=== PATIENT | male | born 1960 | race Caucasian/White ===

== ENCOUNTER 2018-11-16 11:43 | Day surgery (SDC) | payer OTHER ==
[~2018-11-16] VITALS: Ht 160 cm; Wt 103.4 kg
[~2018-11-16 11:43] MED LIST: ATOR10 PO; FISH OIL 1,0001 EAC1 PO; G-FENESIN400 MG PO; MULTI VITAMIN1 EACH PO; ZESTORETIC 20-121 EA PO; ZYRTEC10 M1 PO
[2018-11-16] MEDS ORDERED: HYDCHL12.5 PO (11:59)
--- NOTE | 2018-11-16 12:31 | NUR ---
11/16/18 1231 Olga Lidia Sauceda SIMETHECONE FLUSH USED DURING COLONOSCOPY.
== END 2018-11-16 13:25 | disposition home or self-care (01) ==
LOC: ORSCSDS 11:43
PROVIDERS: Student in an Organized Health Care Education/Training Program
PROC: 0DBH8ZX Excision of Cecum, Via Natural or Artificial Opening Endoscopic, Diagnostic (ICD-10-PCS; principal; 2018-11-16 13:00)
DX: Z12.11 Encounter for screening for malignant neoplasm of colon (principal); D12.0 Benign neoplasm of cecum; I10 Essential (primary) hypertension; G47.33 Obstructive sleep apnea (adult) (pediatric); K57.30 Diverticulosis of large intestine without perforation or abscess without bleeding; E66.01 Morbid (severe) obesity due to excess calories; Z68.41 Body mass index [BMI] 40.0-44.9, adult; Z79.899 Other long term (current) drug therapy
CPT/HCPCS: 88305; J2704; J7120

== ENCOUNTER → 2021-02-07 | Outpatient (CLI) | payer BC ==
[~2021-02-07] MED LIST changes: +BASAGLAR K100 UNIT/6 SC; +CEFD300 PO; +HUMALOG KW100 UNIT/1 SC; +HYDCHL12.5 PO; +HYDROCHLOROTH12.5 MG PO; +INSULIN LI100 UNIT/6; +LACT PO; +LISI20 PO; +METF500 PO; +Prednisone10 MG PO
[2021-02-07 13:22] LABS: BASOPHILS ABSOLUTE AUTO 0.04 K/mm3 (0.00-0.23); BASOPHILS PERCENT AUTO 0 % (0-2); EOSINOPHILS ABSOLUTE AUTO 0.11 K/mm3 (0.00-0.68); EOSINOPHILS PERCENT AUTO 1 % (0-6); Hematocrit 36.5 % (37.0-53.0); Hemoglobin 12.1 g/dL (13.5-17.5); IMMATURE GRAN ABSOLUTE AUTO 0.09 K/mm3 (0.00-0.10); IMMATURE GRAN PERCENT AUTO 1 % (0-1); LYMPHOCYTES ABSOLUTE AUTO 0.64 K/mm3 (0.84-5.20); LYMPHOCYTES PERCENT AUTO 6 % (21-46); MONOCYTES ABSOLUTE AUTO 0.81 K/mm3 (0.16-1.47); MONOCYTES PERCENT AUTO 7 % (4-13); Mean Corpuscular HGB Conc 33.2 g/dL (31.5-36.5); Mean Corpuscular Volume 94 fL (80-100); Mean Platelet Volume 11.6 fL (9.1-12.4); NEUTROPHILS ABSOLUTE AUTO 9.68 K/mm3 (1.96-9.15); NEUTROPHILS PERCENT AUTO 85 % (41-73); Platelet Count 218 K/mm3 (150-400); RDW Coefficient Variation 12.3 % (11.7-14.2); RDW Standard Deviation 42.5 fL (35.1-46.3); White Blood Cell Count 11.37 K/mm3 (4.00-11.30)
[2021-02-07 14:29] LABS: Albumin, Blood 2.8 g/dL (3.4-5.0); Albumin/Globulin Ratio 0.5 (0.8-1.8); Bilirubin, Total 0.3 mg/dL (0.1-1.0); Bun/Creatinine Ratio 17.4 (12.0-20.0); Calcium, Blood 9.8 mg/dL (8.5-10.1); Creatinine, Blood 2.01 mg/dL (0.60-1.20); Potassium, Blood 4.8 mmol/L (3.5-5.5); Total Protein, Blood 8.8 g/dL (6.4-8.2)
[2021-02-07 15:39] LABS: Source, Urine Clean Catch
[2021-02-07 16:04] LABS: Amorphous Light (0-Heavy); Bacteria Rare /hpf; Red Blood Cells, Urine 0-2 /hpf (0-2); Squamous Epithelial Cells Rare /hpf (Few); White Blood Cells, Urine 0-2 /hpf (0-5)
[2021-02-09 13:08] LABS: ANA DIRECT Negative (Negative); ANTI-DNA (DS) AB QN <1 IU/mL (0-9); RNP ANTIBODIES <0.2 AI (0.0-0.9); SJOGREN'S ANTI-SS-A <0.2 AI (0.0-0.9); SJOGREN'S ANTI-SS-B <0.2 AI (0.0-0.9); SMITH ANTIBODIES <0.2 AI (0.0-0.9)
== END | disposition home or self-care (01) ==
LOC: LAB 12:59 → LAB SHORT 12:59
PROVIDERS: Physician Assistant
DX: M35.3 Polymyalgia rheumatica (principal); R31.9 Hematuria, unspecified; D72.829 Elevated white blood cell count, unspecified
CPT/HCPCS: 80053; 81015; 85025; 85060; 85651; 86140; 86225; 86235; 86430; 87086

== ENCOUNTER 2021-02-11 16:06 | Inpatient (IN) | payer BC ==
[~2021-02-11] VITALS: Ht 162.6 cm; Wt 99.8 kg
[~2021-02-11 16:06] MED LIST changes: -BASAGLAR K100 UNIT/6 SC; -CEFD300 PO; -HUMALOG KW100 UNIT/1 SC; -HYDROCHLOROTH12.5 MG PO; -INSULIN LI100 UNIT/6; -LACT PO; -LISI20 PO; -METF500 PO; -Prednisone10 MG PO
[2021-02-11 17:01] LABS: BASOPHILS ABSOLUTE AUTO 0.03 K/mm3 (0.00-0.23); BASOPHILS PERCENT AUTO 0 % (0-2); EOSINOPHILS ABSOLUTE AUTO 0.22 K/mm3 (0.00-0.68); EOSINOPHILS PERCENT AUTO 2 % (0-6); Hematocrit 35.2 % (37.0-53.0); Hemoglobin 11.2 g/dL (13.5-17.5); IMMATURE GRAN ABSOLUTE AUTO 0.13 K/mm3 (0.00-0.10); IMMATURE GRAN PERCENT AUTO 1 % (0-1); LYMPHOCYTES ABSOLUTE AUTO 0.77 K/mm3 (0.84-5.20); LYMPHOCYTES PERCENT AUTO 7 % (21-46); MONOCYTES ABSOLUTE AUTO 0.61 K/mm3 (0.16-1.47); MONOCYTES PERCENT AUTO 5 % (4-13); Mean Corpuscular HGB 30.4 pg (26.0-34.0); Mean Corpuscular HGB Conc 31.8 g/dL (31.5-36.5); Mean Corpuscular Volume 96 fL (80-100); Mean Platelet Volume 11.1 fL (9.1-12.4); NEUTROPHILS ABSOLUTE AUTO 9.78 K/mm3 (1.96-9.15); NEUTROPHILS PERCENT AUTO 85 % (41-73); Platelet Count 303 K/mm3 (150-400); RDW Coefficient Variation 12.2 % (11.7-14.2); RDW Standard Deviation 43.4 fL (35.1-46.3); Red Blood Cell Count 3.68 M/mm3 (4.30-5.90); White Blood Cell Count 11.54 K/mm3 (4.00-11.30)
[2021-02-11 17:27] LABS: Alanine Aminotransfer (ALT/SGP 54 U/L (12-78); Albumin, Blood 2.2 g/dL (3.4-5.0); Albumin/Globulin Ratio 0.4 (0.8-1.8); Alk Phos 69 U/L (50-136); Anion Gap 7 mmol/L (6-16); Aspartate Aminotrans (AST/SGOT 39 U/L (12-37); Bilirubin, Total 0.4 mg/dL (0.1-1.0); Blood Urea Nitrogen 43 mg/dL (8-24); CO2, Blood 26 mmol/L (21-32); Calcium, Blood 9.5 mg/dL (8.5-10.1); Chloride, Blood 101 mmol/L (98-108); Creatinine, Blood 1.79 mg/dL (0.60-1.20); Globulin, Blood 6.1 g/dL (2.2-4.0); Glomerular Filtration Rate 41 (60-); Glucose, Blood 213 mg/dL (70-99); Potassium, Blood 4.3 mmol/L (3.5-5.5); Sodium, Blood 134 mmol/L (136-145); Total Protein, Blood 8.3 g/dL (6.4-8.2)
[2021-02-11 17:35] LABS: Source, Urine Clean Catch
[2021-02-11 17:39] LABS: Appearance, Urine Clear (Clear); Bilirubin, Urine Neg (Neg); Blood, Urine 1+ (Neg); Color, Urine Yellow (P-Yellow); Glucose Qualitative, Urine Neg (Neg); Ketones, Urine 1+ (Neg); Leukocyte Esterase, Urine 1+ (Neg); Nitrite, Urine Neg (Neg); Protein, Urine 2+ (Neg); Urobilinogen, Urine NORM (Normal)
[2021-02-11 17:51] LABS: C-REACTIVE PROTEIN, EXT RANGE >19.000 mg/dL (0.000-0.300)
[2021-02-11 18:07] LABS: Amorphous Light (0-Heavy); Bacteria Few /hpf; Hyaline Casts 0-2 /lpf (0-2); Red Blood Cells, Urine 0-2 /hpf (0-2); Squamous Epithelial Cells Rare /hpf (Few); White Blood Cells, Urine 0-2 /hpf (0-5)
[2021-02-11 19:09] LABS: Adenovirus Not Detected (NOT DETECT); Bordetella pertussis Not Detected (NOT DETECT); Chlamydophila pneumoniae Not Detected (NOT DETECT); Coronavirus 229E Not Detected (NOT DETECT); Coronavirus HKU1 Not Detected (NOT DETECT); Coronavirus NL63 Not Detected (NOT DETECT); Coronavirus OC43 Not Detected (NOT DETECT); Human Metapneumovirus Not Detected (NOT DETECT); Human Rhinovirus/Enterovirus Not Detected (NOT DETECT); Influenza A/2009-H1 Not Detected (NOT DETECT); Influenza A/H1 Not Detected (NOT DETECT); Influenza A/H3 Not Detected (NOT DETECT); Influenza B Not Detected (NOT DETECT); Mycoplasma pneumoniae Not Detected (NOT DETECT); Parainfluenza Virus 1 Not Detected (NOT DETECT); Parainfluenza Virus 2 Not Detected (NOT DETECT); Parainfluenza Virus 3 Not Detected (NOT DETECT); Parainfluenza Virus 4 Not Detected (NOT DETECT); Respiratory Syncytial Virus Not Detected (NOT DETECT); SARS-Cov-2 (COVID-19), BioFire Not Detected (NOT DETECT)
[2021-02-11 21:07] LABS: Glucose, CSF 119 mg/dL (40-70)
[2021-02-11 21:21] LABS: Appearance, CSF Clear (Clear); Color, CSF No Color (No Color); RBC Count, CSF 5 /mm3 (0-0); WBC Count, CSF 1 /mm3 (0-5)
[2021-02-11 21:24] LABS: RBC Count, CSF 0 /mm3 (0-0); WBC Count, CSF 0 /mm3 (0-5)
[2021-02-11 21:25] LABS: Appearance, CSF Clear (Clear); Color, CSF No Color (No Color)
[2021-02-11] MEDS ORDERED: LISI20 PO (21:46)
[2021-02-11] MEDS ORDERED: HYDROCHLOROTH12.5 MG PO (21:46)
[2021-02-11 23:15] LABS: Cryptococcus Neoformans/Gattii Not Detected (NOT DETECT); Enterovirus Not Detected (NOT DETECT); Escherichia Coli K1 Not Detected (NOT DETECT); Haemophilus Influenza Not Detected (NOT DETECT); Herpes Simplex Virus 1 Not Detected (NOT DETECT); Herpes Simplex Virus 2 Not Detected (NOT DETECT); Human Herpesvirus 6 Not Detected (NOT DETECT); Human Parechovirus Not Detected (NOT DETECT); Listeria Monocytogenes Not Detected (NOT DETECT); Neisseria Meningitidis Not Detected (NOT DETECT); Streptococcus Agalactiae Not Detected (NOT DETECT); Streptococcus Pneumoniae Not Detected (NOT DETECT); Varicella Zoster Virus Not Detected (NOT DETECT)
--- NOTE | 2021-02-12 00:10 | NUR ---
ADMISSION: PATIENT IS RECIEVED VIA STRETCHER FROM ER. ABLE TO AMBULATE WITH ASSIST OF 1 TO THE BATHROOM TO VOID. PATIEN T AND ARE ORIENTED TO ROOM AND CALL GENTILE.
[2021-02-12 05:21] LABS: Hematocrit 32.8 % (37.0-53.0); Hemoglobin 10.6 g/dL (13.5-17.5); Mean Corpuscular HGB 30.5 pg (26.0-34.0); Mean Corpuscular HGB Conc 32.3 g/dL (31.5-36.5); Mean Corpuscular Volume 94 fL (80-100); Platelet Count 255 K/mm3 (150-400); RDW Coefficient Variation 12.5 % (11.7-14.2); RDW Standard Deviation 43.8 fL (35.1-46.3); Red Blood Cell Count 3.48 M/mm3 (4.30-5.90)
[2021-02-12 05:41] LABS: Albumin, Blood 1.9 g/dL (3.4-5.0); Albumin/Globulin Ratio 0.4 (0.8-1.8); Bilirubin, Total 0.2 mg/dL (0.1-1.0); Bun/Creatinine Ratio 24.5 (12.0-20.0); Calcium, Blood 8.5 mg/dL (8.5-10.1); Creatinine, Blood 1.59 mg/dL (0.60-1.20); Potassium, Blood 4.5 mmol/L (3.5-5.5); Total Protein, Blood 6.9 g/dL (6.4-8.2)
[2021-02-12 05:59] LABS: BAND PERCENT MAN 9 % (0-8); BASOPHILS PERCENT MAN 0 % (0-2); EOSINOPHILS ABSOLUTE MAN 0.08 K/mm3 (0.00-0.68); EOSINOPHILS PERCENT MAN 1 % (0-6); LYMPHOCYTES ABSOLUTE MAN 0.53 K/mm3 (0.84-5.20); LYMPHOCYTES PERCENT MAN 6 % (21-46); MONOCYTES ABSOLUTE MAN 0.62 K/mm3 (0.16-1.47); MONOCYTES PERCENT MAN 7 % (4-13); NEUTROPHILS ABSOLUTE MAN 7.65 K/mm3 (1.96-9.15); SEG NEUTROPHILS PERCENT MAN 77 % (41-73); TOTAL CELLS COUNTED 100
--- NOTE | 2021-02-12 08:04 | NUR ---
SHIFT SUMMARY: PATIENT IS A&OX4, CONTINUES TO RUN A LOW GRADE FEVER. REPORTING GENERALIZED PAIN 6-7/10. GAIT IS UNSTEADY DUE TO PAIN IN LOWER LEGS. NS X 1 IS INFUSING PER MD ARMSTRONG. NO ACUTE CHANGES.
--- NOTE | 2021-02-12 10:03 | NUR ---
echocardiogram completed
--- NOTE | 2021-02-12 12:56 | NUR ---
Advance Directive (AD) education conducted. Patient expresses interest so I give patient an AD booklet and go over the sections within the booklet and explain about the filing process. Patient demonstrates a clear understanding and states that he will read over the materials and contact spiritual care if he has any further questions. Spiritual care will remain available .
[2021-02-12 13:49] LABS: U Amphetamine Screen Not Detected; U Barbituate Screen Not Detected; U Benzodiazapine Screen Not Detected; U Buprenorphine Screen Not Detected; U Cannabinoids Screen Not Detected; U Cocaine Screen Not Detected; U Methadone Screen Not Detected; U Methamphetamine Screen Not Detected; U Opiates Screen Not Detected; U Oxycodone Screen Not Detected; U Phencyclidine Screen Not Detected; U Propoxyphene Screen Not Detected
--- NOTE | 2021-02-12 16:45 | NUR ---
TYLENOL GIVEN. ICE PACKS TO ARMPITS. FAN ON LOW. COOL WASHCLOTH TO FOREHEAD. PATIENT EATTING POPSICLE. WILL RECHECK TEMP AND MONITOR.
--- NOTE | 2021-02-12 19:13 | NUR ---
ALERT. ORIENTED. SPIKED HIGH TEMP LATE IN SHIFT. GIVEN TYL, ICE PACKS, COOL WASH CLOTHS TO FOREHEAD , POPCICLE, AND FAN. TEMP STARTED TO DECREASE AFTER ABOUT 1 HOUR. AWARE. BLD CULTURES X 2 DRAWN AND ROCEPHIN GIVEN EARLY. UNLABORED RESPIRATIONS.STANDBY ASSIST TO BATHROOM. REPORT GIVEN TO MARTÍN MCMAHON
--- NOTE | 2021-02-12 22:44 | NUR ---
PAIN/TEMP: PATIENT WAKES FROM SLEEPING WITH PAIN IN BILAT KNEES 8/10, MOANING. PAIN WAS 2/10 AT LAST ASSESSMENT. TEMP. IS 101.6. IV TORADOL AND TYLENOL ARE GIVEN. PAIN LEVEL BEFORE SLEEPING WAS 2/10.
--- NOTE | 2021-02-13 00:50 | NUR ---
TEMP: TEMP AFTER TYLENOL AND TORADOL IS 101.6. DR GUERRIER WAS NOTIFIED AND ORDER FOR IBUPROFEN 200MG WAS OBTAINED. PATIENT IS FEELING MUCH BETTER AFTER TORADOL WAS GIVEN AND IS SLEEPING.
--- NOTE | 2021-02-13 01:32 | NUR ---
TEMP: FEVER BROKE TEMP IS NOW 97.9 ORAL. PATIENT IS REPORTING PAIN AT 1-09/24. IBUPROFEN IS NOT GIVEN.
--- NOTE | 2021-02-13 07:34 | NUR ---
SHIFT SUMMARY: AFTER FEVER BROKE PATIENT WAS FOUND DRENCHED IN SWEAT, BLOOD GLUCOSE WAS 298 AT THE TIME. GOWN AND LINENS WERE CHANGED. PATIENT SLEP WELL THE REST OF THE NIGHT.
[2021-02-13 12:28] LABS: Source, Urine Clean Catch
[2021-02-13 13:40] LABS: Appearance, Urine Clear (Clear); Bilirubin, Urine Neg (Neg); Blood, Urine Neg (Neg); Color, Urine Yellow (P-Yellow); Glucose Qualitative, Urine 3+ (Neg); Ketones, Urine Neg (Neg); Leukocyte Esterase, Urine Neg (Neg); Nitrite, Urine Neg (Neg); Protein, Urine 1+ (Neg); Urobilinogen, Urine NORM (Normal)
--- NOTE | 2021-02-13 13:54 | NUR ---
ADMIT: 02/11/21 DISCHARGE: DX: Fever unclear etiology CC: kwilcox BRIDGET CALL: RESIDENCE: Home CAREGIVER: Liza Cobian, Spouse / Partner, DX: HTN, CKD-stage 3, Obese, DM type 2, see list DME: CPAP CCM: none HOME HEALTH: none SUMMARY: 02/13/21- per chart review with Dr. Avila, pt is not stable to d/c at this time. Met with pt and he reports he was independent prior to coming into the hospital. He did not have caregivers or home health services. Pt lives with his next door to his elderly in-laws. Their home is a single story home with 2 steps to get up into the home. He has no concerns using the stairs. Their home has all working utilities. Pt still drives but recently his or son have been taking him to his appts. He has no POA but his , Liza, is his next of kin. He has no DME needs. Pt is able to manage his own medications and he uses [facility] on [address]. Reviewed BRIDGET letter and he acknowledged understanding. -deepthiw
--- NOTE | 2021-02-13 15:46 | NUR ---
PATIENT HAS BEEN LETHARGIC AND FEBRILE TODAY. APAP ADMINISTERED ONCE AND TOOK QUITE SOME TIME TO TAKE EFFECT, AND ONLY AFTER ICE PACKS WERE PLACED IN THE AXILLARY REGION OF THE PATIENT. PATIENT HAS NOW STARTED A 24-HR URINE PER DR DEL VALLE CONSULTED BY DR PATHAK; COLLECTION TO END TOMORROW AT 1410. PATIENT COMPLIANT WITH CALLING AFTER VOIDING INTO URINAL. PATIENT WITHOUT MUCH OF AN APPETITE RIGHT NOW, BUT SEEMS TO BE DRINKING ICE WATER PRETTY WELL. IS AT BEDSIDE AT THIS TIME. CALL LIGHT WITHIN REACH.
--- NOTE | 2021-02-13 16:38 | NUR ---
PATIENT HAS FEVER OF 103.[address] PATHAK AND NOTIFIED HIM IT HAS ONLY BEEN 4 HOURS SINCE PATIENT HAS HAD APAP. NEW ORDERS GIVEN TO ADMINISTER 125MG IV SOLUMEDROL NOW X 1 DOSE AND 400MG PO MOTRIN Q6 HRS PRN FOR FEVER IF APAP IS INEFFECTIVE.
[2021-02-13 23:43] LABS: Glucose, Blood 537 mg/dL (70-99)
--- NOTE | 2021-02-13 23:57 | NUR ---
PT. BEDTIME BS 494. NOTIFIED DR. RUSHING, ORDERED TO GIVE 15 UNITS OF INSULIN AND CHANGE TO HIGH SS INSULIN. ADMINISTERED PER EMAR. RECHECK BS OF 537, DR. RUSHING MADE AWARE. ORDER FOR NS 500ML BOLUS AND REPEAT BS IN 1/2HR. PT. ASYMPTOMATIC, DENIES ANY COMPLAINTS AT THIS TIME. AWAKE AND SITTING UP ON BED. WILL CONT TO MONITOR.
--- NOTE | 2021-02-14 02:39 | NUR ---
ORDERED FLUID BOLUS GIVEN PER EMAR. REPEAT BS 479, NOTIFIED DR. GUERRIER. ORDER RECEIVED FOR 15 UNITS SEMGLEE AND CONT PT. ON CURRENT SS. INSTRUCTED TO RECHECK BS IN AM.
--- NOTE | 2021-02-14 04:21 | NUR ---
SHIFT SUMMARY- PT. A&OX4, PLEASANT, AND COOPERATIVE WITH CARE. TEMP AND VITALS WNL LAST NIGHT. PT. HAD NO COMPLAINTS OF PAIN T/O THE NIGHT. ABLE TO AMBULATE WITH SBA TO BATHROOM, URINAL ALSO AT BEDSIDE PRN. PT. WITH HIGH BS DURING THE NIGHT. NOTIFIED HOSPITALIST, NEW ORDERS RECEIVED (SEE NURSE NOTES). PT. SLEPT T/O THE NIGHT, NO APPARENT DISTRESS NOTED. DENIES NEEDS AT THIS TIME. CALL LIGHT WITHIN REACH AND SIDE RAILS UPX2. WILL CONT TO MONITOR.
[2021-02-14 05:27] LABS: Hematocrit 32.7 % (37.0-53.0); Hemoglobin 10.3 g/dL (13.5-17.5)
[2021-02-14 05:59] LABS: Albumin, Blood 1.7 g/dL (3.4-5.0); Anion Gap 8 mmol/L (6-16); Blood Urea Nitrogen 52 mg/dL (8-24); Bun/Creatinine Ratio 31.1 (12.0-20.0); CO2, Blood 23 mmol/L (21-32); CPK Creatine Kinase 115 U/L (39-308); Calcium, Blood 8.6 mg/dL (8.5-10.1); Chloride, Blood 99 mmol/L (98-108); Creatinine, Blood 1.67 mg/dL (0.60-1.20); Glomerular Filtration Rate 45 (60-); Glucose, Blood 471 mg/dL (70-99); Potassium, Blood 4.9 mmol/L (3.5-5.5); Sodium, Blood 130 mmol/L (136-145); Thyroid Stimulating Hormone 0.456 uIU/mL (0.360-4.800); Uric Acid, Blood 6.8 mg/dL (3.5-7.2)
--- NOTE | 2021-02-14 08:43 | NUR ---
CALLED DR FOR BLOOD SUGAR OF 445 THIS AM; SLIDING SCALE OF 15 UNITS HUMALOG GIVEN AND NO ADDED ORDER AT THIS TIME
--- NOTE | 2021-02-14 12:30 | NUR ---
CALLED DR FOR CBG OF 462; MEDICATED PER EMAR.
[2021-02-14 14:38] LABS: Protein, Urine Quantitative 32.3 mg/dL (0.0-11.9)
--- NOTE | 2021-02-14 18:10 | NUR ---
SHIFT SUMMARY PT A0X4;1P ASSIST. PT HAS CONSISTENT HIGH BLOOD SUGAR OF 400'S TODAY; CALLED THE DR THIS LATE AFTERNOON; 20 UNITS OF LISPRO GIVEN AT ONE TIME AND Q2 CBG CHECK STARTING TONIGHT WITH HIGH SLIDING SCALE PER DR. PT DENIES DISCFORT OR CP; PT STILL RECEIVING PREDNISONE. BED IS IN THE LOWEST POSITION AND CALL LIGHT WITHIN REACH
--- NOTE | 2021-02-14 22:35 | NUR ---
BLOOD SUGARS PT'S BLOOD SUGAR AT 1999 WAS 471, PT WAS MEDICATED WITH 15 UNIT HUMALOG AND 40 UNIT SEMGLEE. AT 0, PT BLOOD SUGAR WAS 478, AND PT WAS MEDICATED WITH AN ADDITIONAL [address] PATHAK CALLED FOR AN UPDATE, AND WAS INFORMED OF PT'S BLOOD SUGARS. HE ORDERED AN INSULIN IV DRIP, AND A TRANSFER TO ICU. PT TO BE TRANSFERED TO ICU 7. REPORT GIVEN TO CINTHIA GAMINO RN.
--- NOTE | 2021-02-14 23:37 | NUR ---
ASSUMED PT CARE FROM MARIA TERESA RODRIGUEZ AT 2305 PT ARRIVED ON UNIT SECONDARY TO HYPERGLYCEMIA WITH BLOOD SUGARS >400. PT IS ALERT AND ORIENTED AND ABLE TO MAKE NEEDS KNOWN. BS UPON ARRIVAL WAS 399. INITIATED INSULIN GTT AT 2 UNITS/HR VIA 20G TO LEFT HAND. NSR WITH HR 60'S. PT IS ON ROOM AIR, BUT DOES HAVE HOME CPAP. VSS, SEE FLOWSHEET. CALL LIGHT WITHIN REACH AND PT IS ABLE TO MAKE NEEDS KNOWN.
[2021-02-15 04:00] LABS: Hematocrit 29.2 % (37.0-53.0); Hemoglobin 9.7 g/dL (13.5-17.5)
[2021-02-15 04:17] LABS: Albumin, Blood 1.8 g/dL (3.4-5.0); Anion Gap 6 mmol/L (6-16); Blood Urea Nitrogen 61 mg/dL (8-24); Bun/Creatinine Ratio 36.1 (12.0-20.0); CO2, Blood 27 mmol/L (21-32); Calcium, Blood 8.8 mg/dL (8.5-10.1); Chloride, Blood 103 mmol/L (98-108); Creatinine, Blood 1.69 mg/dL (0.60-1.20); Glomerular Filtration Rate 44 (60-); Glucose, Blood 315 mg/dL (70-99); Magnesium, Blood 3.1 mg/dL (1.6-2.4); Phosphorus, Blood 3.6 mg/dL (2.5-4.9); Potassium, Blood 4.3 mmol/L (3.5-5.5); Sodium, Blood 136 mmol/L (136-145)
--- NOTE | 2021-02-15 05:58 | NUR ---
END OF SHIFT SUMMARY PT REMAINS ON INSULIN GTT; CURRENTLY AT 6 UNITS/HR. SLOWLY TRENDING DOWN WITH LAST CBG 273. AFEBRILE THIS SHIFT. NSR WITH HR 60'S. ON ROOM AIR WITH STABLE VSS, SEE FLOWSHEET. CALL LIGHT WITHIN REACH; PT ABLE TO MAKE NEEDS KNOWN. WILL CONTINUE TO MONITOR UNTIL REPORT IS HANDED OFF TO ONCOMING RN.
--- NOTE | 2021-02-15 08:32 | NUR ---
Logan of Care: Care assumed at 0700hr. Patient A/O x4, sitting up in bed, reading on his I-pad. Denies pain, discomfort, SOB, or dyspnea. VSS, spO2 97% on RA. Insulin gtt at 7u/hr, blood sugar 238 shortly after shift change (decreased from 250's), gtt maintained at 7u/hr. Power-glide to CINTHIA patent and intact, peripheral IV to lt hand patent and intact. Denied offer to get out of bed for breakfast, but patient stated he would get up to chair later this shift. Calm and cooperative with staff. Call light in reach, makes needs known. Call placed to Dr. Avila shortly after shift change to discuss current blood glucose, insulin gtt, and Solumedrol. Received order to decrease Solumedrol from 60mg BID to 40mg BID. Will continue to monitor, will continue to check CBG q1hr.
--- NOTE | 2021-02-15 18:13 | NUR ---
Shift Summary: Patient remains stable throughout shift, continues to deny pain, discomfort, SOB, or dyspnea. Dr. Avila to rom at approx 1200hr, received instructions to give 40u Semglee at 1500, turn off insulin gtt at 1600hr, and to call with cbg at 1700hr. Also received orders for Humalog quick pen per high SS AC/HS at this time. CBG 241 (1500) 40u Semglee given. CBG 206 (1600), insulin gtt stopped. CBG 176 (1700), 3u humalog given and call placed to Dr. Avila. Received orders to change patient to Medical status, and to instruct NOC shift RN to call with 2100hr CBG results, before giving HS Semglee, nurse notify placed with these instructions. Received bed assignment for rm [id number], report called to Traci MOREL. Awaiting room to be cleaned at this time. Patient resting comfortable in room. Makes needs known. Will continue to monitor.
[2021-02-16 06:41] LABS: BASOPHILS ABSOLUTE AUTO 0.01 K/mm3 (0.00-0.23); BASOPHILS PERCENT AUTO 0 % (0-2); EOSINOPHILS PERCENT AUTO 0 % (0-6); Hematocrit 30.2 % (37.0-53.0); Hemoglobin 9.9 g/dL (13.5-17.5); IMMATURE GRAN ABSOLUTE AUTO 0.34 K/mm3 (0.00-0.10); IMMATURE GRAN PERCENT AUTO 5 % (0-1); LYMPHOCYTES ABSOLUTE AUTO 1.14 K/mm3 (0.84-5.20); LYMPHOCYTES PERCENT AUTO 15 % (21-46); MONOCYTES ABSOLUTE AUTO 0.54 K/mm3 (0.16-1.47); MONOCYTES PERCENT AUTO 7 % (4-13); Mean Corpuscular HGB 30.5 pg (26.0-34.0); Mean Corpuscular HGB Conc 32.8 g/dL (31.5-36.5); Mean Corpuscular Volume 93 fL (80-100); Mean Platelet Volume 12.1 fL (9.1-12.4); NEUTROPHILS ABSOLUTE AUTO 5.37 K/mm3 (1.96-9.15); NEUTROPHILS PERCENT AUTO 73 % (41-73); Platelet Count 161 K/mm3 (150-400); RDW Coefficient Variation 11.9 % (11.7-14.2); RDW Standard Deviation 40.7 fL (35.1-46.3); Red Blood Cell Count 3.25 M/mm3 (4.30-5.90)
[2021-02-16 06:47] LABS: Bun/Creatinine Ratio 36.3 (12.0-20.0); Calcium, Blood 8.8 mg/dL (8.5-10.1); Creatinine, Blood 1.68 mg/dL (0.60-1.20); Potassium, Blood 4.3 mmol/L (3.5-5.5)
--- NOTE | 2021-02-16 07:20 | NUR ---
SHIFT SUMMARY PT IS A 60 Y/O MALE, ADMITTED FOR FEVER OF UNKNOWN ETIOLOGY. HE IS A&O X 4, INDEPENDENT IN THE ROOM. PT WAS TRANSFERED FROM ICU AT START OF SHIFT. BLOOD SUGAR AT HS WAS 355. DR PATHAK WAS NOTIFIED, AND PT WAS GIVEN 18 UNIT HUMALOG AND 40 UNIT LANTUS PER VERBAL ORDER. PT WAS RECHECKED 2 HOURS LATER, AND COVERED VIA HIGH SLIDING SCALE WITH 15 UNITS HUMALOG. THIS AM, BLOOD SUGAR WAS NOTED TO BE 286. NO C/O ACUTE PAIN, NAUSEA OR SOB. VITAL SIGNS STABLE. NO OTHER ACUTE CHANGES IN PT CONDITION NOTED DURING THE NIGHT. WILL CONTINUE TO MONITOR AND TREAT PER EMAR UNTIL HAND OFF TO DAY SHIFT RN.
[2021-02-16] MEDS ORDERED: BASAGLAR K100 UNIT/6 SC (11:09)
[2021-02-16] MEDS ORDERED: HUMALOG KW100 UNIT/1 SC (11:10)
[2021-02-16] MEDS ORDERED: INSULIN LI100 UNIT/6 (11:11)
[2021-02-16] MEDS ORDERED: Prednisone10 MG PO (11:17)
[2021-02-16] MEDS ORDERED: LACT PO (11:17)
[2021-02-16] MEDS ORDERED: CEFD300 PO (11:18)
[2021-02-16] MEDS ORDERED: METF500 PO (11:18)
--- NOTE | 2021-02-16 14:24 | NUR ---
1325 PT DISCHARGED HOME VIA PERSONAL VEHICLE ACCOMPANIED AND DRIVEN BY . ESCORTED TO FACILITY ENTRANCE BY GAME ATTENDANT. IV REMOVED. D/C INSTRUCTIONS REVIEWED WITH PT AND COPY PROVIDED, PRESENT DURING EDUCATION. PT RETURN DEMONSTRATED 3 INSULIN INJECTIONS TODAY, EDUCATION PROVIDED VERBALLY AND IN WRITING ON BLOOD SUGAR TESTING AND MANAGEMENT. GLUCOMETER, STRIPS, LANCETS, AND P[facility] NEEDLES [facility] [address] [facility], NEW MEDICATIONS FAXED.
[2021-02-17 13:10] LABS: M-SPIKE, % Not Observed % (Not Observed); PROTEIN,TOTAL,URINE 10.9 mg/dL (Not Estab.)
[2021-02-18 13:11] LABS: A/G RATIO 0.7 (0.7-1.7); ALPHA-1-GLOBULIN 0.7 g/dL (0.0-0.4); ALPHA-2-GLOBULIN 1.3 g/dL (0.4-1.0); BETA GLOBULIN 0.5 g/dL (0.7-1.3); GAMMA GLOBULIN 0.9 g/dL (0.4-1.8); GLOBULIN, TOTAL 3.3 g/dL (2.2-3.9); IMMUNOGLOBULIN A, QN, SERUM 187 mg/dL (90-386); IMMUNOGLOBULIN G, QN, SERUM 897 mg/dL (603-1613); IMMUNOGLOBULIN M, QN, SERUM 80 mg/dL (20-172); M-SPIKE Not Observed g/dL (Not Observed); PROTEIN, TOTAL, SERUM 5.3 g/dL (6.0-8.5)
[2021-02-18 14:11] LABS: ANA DIRECT Negative (Negative); ANTIMYELOPEROXIDASE (MPO) ABS <9.0 U/mL (0.0-9.0); ANTIPROTEINASE 3 (PR-3) ABS <3.5 U/mL (0.0-3.5); ATYPICAL PANCA <1:20 titer (Neg:<1:20); CYTOPLASMIC (C-ANCA) <1:20 titer (Neg:<1:20); PERINUCLEAR (P-ANCA) <1:20 titer (Neg:<1:20)
== END 2021-02-16 13:25 | disposition home or self-care (01) | DRG 872 ==
LOC: ER 16:06 → MEDS 16:08 → ER 21:49 → MEDS 21:49 → ICUE 02-14 23:05 → MEDS 02-15 19:23
PROVIDERS: Emergency Medicine; Internal Medicine; Internal Medicine Nephrology; Physician Assistant; ADMIT Internal Medicine
PROC: 009U3ZX Drainage of Spinal Canal, Percutaneous Approach, Diagnostic (ICD-10-PCS; principal; 2021-02-11)
DX: A41.9 Sepsis, unspecified organism (principal); N17.9 Acute kidney failure, unspecified; E87.1 Hypo-osmolality and hyponatremia; E86.9 Volume depletion, unspecified; J02.9 Acute pharyngitis, unspecified; Z20.822 Contact with and (suspected) exposure to COVID-19; R19.7 Diarrhea, unspecified; E88.09 Other disorders of plasma-protein metabolism, not elsewhere classified; E11.65 Type 2 diabetes mellitus with hyperglycemia; T38.0X5A Adverse effect of glucocorticoids and synthetic analogues, initial encounter; N18.30 Chronic kidney disease, stage 3 unspecified; E11.22 Type 2 diabetes mellitus with diabetic chronic kidney disease; M13.842 Other specified arthritis, left hand; M13.841 Other specified arthritis, right hand; D63.1 Anemia in chronic kidney disease; I12.9 Hypertensive chronic kidney disease with stage 1 through stage 4 chronic kidney disease, or unspecified chronic kidney disease; E78.5 Hyperlipidemia, unspecified; H81.09 Meniere's disease, unspecified ear; Z79.899 Other long term (current) drug therapy
CPT/HCPCS: 0202U; 36415; 62270; 70450; 70491; 71260; 74177; 80048; 80053; 80069; 81001; 82533; 82550; 82784; 82945; 82947; 83036; 83516; 83520; 83605; 83735; 83880; 84145; 84156; 84157; 84165; 84166; 84443; 84484; 84550; 85014; 85018; 85025; 86038; 86140; 86256; 86308; 86334; 86335; 86430; 87040; 87070; 87081; 87086; 87205; 87430; 87483; 89051; 93005; 93010; 93306; 93975; 94760; 96365-59; 96366; 96366-59; 96367-59; 96372; 96375; 96376; 99285-25; A9270; C1751; G0378; J0696; J0881; J1650; J1815; J1885; J2920; J2930; J3370; J7030; J7040; J7050; J7512; Q9967

== ENCOUNTER → 2021-03-14 | Outpatient (CLI) | payer BC ==
[~2021-03-14] MED LIST changes: +BASAGLAR K100 UNIT/6 SC; +CEFD300 PO; +HUMALOG KW100 UNIT/1 SC; +HYDROCHLOROTH12.5 MG PO; +INSULIN LI100 UNIT/6; +LACT PO; +LISI20 PO; +METF500 PO; +Prednisone10 MG PO
[2021-03-16 13:16] LABS: Creatinine Urine 60.7 mg/dL (27.00-270.00); Protein, Urine Quantitative 9.2 mg/dL (0.0-11.9)
[2021-03-16 13:19] LABS: Microalbumin, Urine Quant. 7.07 mg/L (0.000-20.000)
== END | disposition home or self-care (01) ==
LOC: LAB EV 05:00 → LAB SHORT 05:00
PROVIDERS: Internal Medicine Nephrology
DX: N18.4 Chronic kidney disease, stage 4 (severe) (principal); D63.1 Anemia in chronic kidney disease; N13.30 Unspecified hydronephrosis; R33.9 Retention of urine, unspecified; R76.9 Abnormal immunological finding in serum, unspecified; R94.5 Abnormal results of liver function studies; R94.6 Abnormal results of thyroid function studies
CPT/HCPCS: 81050; 82043; 82570; 84156